=== PATIENT | female | born 1980 | race Caucasian/White ===

== ENCOUNTER 2020-10-18 13:59 | Inpatient (IN) | payer OTHER ==
[~2020-10-18] VITALS: Ht 162.6 cm; Wt 82.6 kg
[2020-10-18 16:00] LABS: HEMOGLOBIN 15.3 gm/dl (12.3-15.3); RED BLOOD COUNT 5.09 M/UL (4.00-5.10); WHITE BLOOD COUNT 11.1 K/UL (4.5-11.0)
[2020-10-18 16:20] LABS: BUN/CREATININE RATIO 21 (0-10)
[2020-10-19 08:03] LABS: HEMOGLOBIN 13.8 gm/dl (12.3-15.3); WHITE BLOOD COUNT 9.4 K/UL (4.5-11.0)
[2020-10-19 08:06] LABS: RED BLOOD COUNT 4.55 M/UL (4.00-5.10)
[2020-10-19 08:44] LABS: BUN/CREATININE RATIO 35 (0-10)
[2020-10-19] MEDS ORDERED: CLEOCIN HCL300 MG PO (11:44)
[2020-10-19] MEDS ORDERED: DIFLUCAN150 MG PO (11:47)
[2020-10-19] MEDS ORDERED: CLARITIN10 MG PO (11:52)
[2020-10-19] MEDS ORDERED: AMITRIPTYLINE100 MG PO (11:52)
[2020-10-19] MEDS ORDERED: AMLODIPINE BESY10 MG PO (11:53)
[2020-10-19] MEDS ORDERED: LIORESAL TAB 1010 MG PO (11:53)
[2020-10-19] MEDS ORDERED: IBUPROFEN800 MG PO (11:54)
[2020-10-19] MEDS ORDERED: FLONASE 0.05% N16 GM (11:54)
[2020-10-19] MEDS ORDERED: GABAPENTIN400 MG PO (11:55)
[2020-10-20 05:47] LABS: BUN/CREATININE RATIO 39 (0-10)
[2020-10-21 08:28] LABS: BUN/CREATININE RATIO 30 (0-10)
[2020-10-22 03:20] LABS: HEMOGLOBIN 12.2 gm/dl (12.3-15.3); RED BLOOD COUNT 4.11 M/UL (4.00-5.10); WHITE BLOOD COUNT 8.7 K/UL (4.5-11.0)
--- NOTE | 2020-10-22 03:29 | NUR ---
10/21/20 1845 INSTRUCTED PT ON NOTHING BY MOUTH AFTER MIDNIGHT. PT VERBALIZED UNDERSTANDING.
[2020-10-22 03:42] LABS: BUN/CREATININE RATIO 26 (0-10)
[2020-10-23] MEDS ORDERED: BACTRIM DS TAB1 EACH PO (11:31)
[2020-10-23] MEDS ORDERED: TRAMADOL HCL50 MG PO (11:33)
[2020-10-23] MEDS ORDERED: ULTRAM50 MG PO (11:35)
== END 2020-10-23 17:14 | disposition home or self-care (01) | DRG 558 ==
LOC: ER1 13:59 → CDU 15:20 → M/S 15:20
PROVIDERS: Family Medicine; Physician Assistant Medical; ADMIT Internal Medicine
DX: M65.142 Other infective (teno)synovitis, left hand (principal); L03.114 Cellulitis of left upper limb; L02.512 Cutaneous abscess of left hand; I10 Essential (primary) hypertension; Z20.822 Contact with and (suspected) exposure to COVID-19; F17.210 Nicotine dependence, cigarettes, uncomplicated; Z82.49 Family history of ischemic heart disease and other diseases of the circulatory system; Z90.49 Acquired absence of other specified parts of digestive tract; Z83.3 Family history of diabetes mellitus
CPT/HCPCS: 36415; 73130; 73201; 80048; 80053; 80202; 83735; 85025; 85027; 85652; 86140; 87040; 96365; 96366; 96367; 96368; 96375; 96376; 99285; J1650; J1885; J2185; J2405; J2550; J3370; J7040; J7070; J7120; Q9967; U0002